=== PATIENT | female | born 1980 | race Caucasian/White ===

== ENCOUNTER 2016-12-19 16:42 | Emergency (ER) | payer OTHER ==
[2016-12-19] MEDS ORDERED: Sodium Chloride 0.9% 1,000 ML IV ONE (17:23)
--- NOTE | 2016-12-19 17:31 | C.PDOC ---
History Of Present Illness Patient is a 36 year old female, who reports she is 18 weeks based on an US performed at 6 weeks , presents with complains of suprapubic pain and occasional dysuria beginning today. She reports that the pain feels like a stretching b/l. Patient states all her care has been in [facility]. She reports she has never felt the baby move. Patient denies passage of fluid, fever, nausea , vomiting, back pain, chest pain, or shortness of breath. Time Seen by Provider: 12/19/16 17:12 Chief Complaint (Nursing): Abdominal Pain History Per: Patient History/Exam Limitations: no limitations Onset/Duration Of Symptoms: Hrs Current Symptoms Are (Timing): Still Present Location Of Pain/Discomfort: Suprapubic Radiation Of Pain To:: None Quality Of Discomfort: "Pain" Associated Symptoms: Other (dysuria ). denies: Fever, Chills, Nausea, Vomiting Exacerbating Factors: None Alleviating Factors: None Recent travel outside of the [place]: Yes Abnormal Vaginal Bleeding: No Past Medical History Reviewed: Historical Data, Nursing Documentation, Vital Signs Vital Signs: Last Vital Signs Temp 98.0 F 12/19/16 17:11 Pulse 81 12/19/16 17:11 Resp 18 12/19/16 17:11 BP 110/72 12/19/16 17:11 Pulse Ox 99 12/19/16 18:53 Family History: States: Unknown Family Hx - Social History Hx Alcohol Use: No Hx Substance Use: No Review Of Systems Constitutional: Negative for: Fever, Chills Cardiovascular: Negative for: Chest Pain, Palpitations Respiratory: Negative for: Cough, Shortness of Breath Gastrointestinal: Positive for: Abdominal Pain (suprapubic pain ). Negative for : Nausea, Vomiting, Diarrhea Genitourinary: Positive for: Dysuria. Negative for: Hematuria, Vaginal Discharge Physical Exam - Physical Exam Appears: Non-toxic, No Acute Distress Skin: Warm, Dry Head: Atraumatic Eye(s): bilateral: Normal Inspection Oral Mucosa: Moist Neck: Supple Chest: Symmetrical, No Deformity Cardiovascular: Rhythm Regular, No Murmur Respiratory: No Rales, No Rhonchi, No Wheezing, Other (Clear to auscultation bilaterally ) Gastrointestinal/Abdominal: Soft, No Tenderness, No Distention, No Guarding, No Rebound, Other (abdomen is gravid ) Extremity: Normal ROM, No Tenderness Neurological/Psych: Oriented x3 ED Course And Treatment - Laboratory Results Result Diagrams: 12/19/16 17:38 12/19/16 17:38 O2 Sat by Pulse Oximetry: 99 (RA) Medical Decision Making Medical Decision Making: Transvaginal US and labs were ordered. Patient was given Tylenol and IV fluids. 6:49PM U/s shows IUP at 16 weeks, 4 days with FHR:142. Breech presentation. Posterior placenta. Given 1L IVF with improvement of symptoms. UA negative for infection. Due to rare bacteria and , will [facility] antibiotics Disposition - Disposition Referrals: [facility]. [facility] [Outside] Disposition: HOME/ ROUTINE Disposition Time: 18:50 Condition: GOOD Additional Instructions: Follow-up with [employer] [facility] within 2 days. Return to ED if condition worsens. Keep hydrated. Take full course of antibiotics. Prescriptions: Nitrofurantoin Macrocrystals [Macrobid] 100 mg PO BID #14 cap Instructions: Abdominal Pain in (ED), Urinary Tract Infection in (ED) Forms: [employer] ([place]) - Clinical Impression Clinical Impression: Abdominal pain affecting , UTI in - Scribe Statement The provider has reviewed the documentation as recorded by the Scribe Stephy Tavarez All medical record entries made by the Scribe were at my direction and personally dictated by me. I have reviewed the chart and agree that the record accurately reflects my personal performance of the history, physical exam, medical decision making, and the department course for this patient. I have also personally directed, reviewed, and agree with the discharge instructions and disposition.
[2016-12-19 17:46] LABS: RBC URINE 1 /hpf (0-3); TRANSITIONAL EPITHIAL < 1 /hpf (0-3); URINE BACTERIA RARE (<OCC); URINE BILIRUBIN NEGATIVE (NEGATIVE); URINE BLOOD NEGATIVE (NEGATIVE); URINE COLOR Straw (YELLOW); URINE GLUCOSE (UA) NORMAL (Normal); URINE KETONE NEGATIVE (NEGATIVE); URINE LEUKOCYTE ESTERASE NEGATIVE Leu/uL (Negative); URINE PROTEIN NEGATIVE (NEGATIVE); URINE UROBILINOGEN NORMAL mg/dL (0.2-1.0); WBC URINE 3 /hpf (0-5)
[2016-12-19 17:46] LABS: BASO % 0.3 % (0.0-2.0); EOS # 0.1 K/uL (0.0-0.7); EOS % 0.8 % (0.0-4.0); HEMATOCRIT 35.3 % (34.0-47.0); LYMPH # 3.1 K/uL (1.0-4.3); LYMPH % 29.5 % (20.0-40.0); MEAN CELL VOLUME 76.4 fL (81.0-99.0); MEAN CORPUSCULAR HEMOGLOBIN 25.2 pg (27.0-31.0); MEAN PLATELET VOLUME 7.1 fL (7.2-11.7); MONO # 0.9 K/uL (0.0-0.8); MONO % 8.3 % (0.0-10.0); RED CELL DISTRIBUTION WIDTH 13.5 % (11.5-14.5); WHITE BLOOD COUNT 10.6 K/uL (4.8-10.8)
[2016-12-19 17:53] LABS: CHLORIDE 98 mmol/L (98-107); POTASSIUM 3.5 mmol/L (3.6-5.2); SODIUM 129 mmol/L (132-148)
[2016-12-19 17:56] LABS: ALB/GLOB RATIO 1.2 (1.0-2.1); ALKALINE PHOSPHATASE 56 U/L (38-126); ALT/SGPT 32 U/L (9-52); AST/SGOT 22 U/L (14-36); BILIRUBIN,TOTAL 0.4 mg/dL (0.2-1.3); BLOOD UREA NITROGEN 12 mg/dL (7-17); CARBON DIOXIDE 20 mmol/L (22-30); GFR AFRICAN-AMERICAN > 60; GLUCOSE,RANDOM 76 mg/dL (65-105); TOTAL PROTEIN 7.7 g/dL (6.3-8.3)
[2016-12-19 17:57] LABS: CALCIUM 9.1 mg/dl (8.6-10.4)
[2016-12-19 19:10] VITALS: BP 121/70; PULSE 77; RESP 19; TEMP 97.8; O2SAT 98
--- NOTE | 2016-12-19 19:38 | US ---
EXAM: US After First Trimester, Transabdominal EXAM DATE/TIME: 12/19/2016 5:20 PM CLINICAL HISTORY: 36 years old, female; Pain; complicated by abdominal or pelvic pain; Generalized abdominal pain; Second trimester; LMP 08/30/16: ; Additional info: , abdominal pain TECHNIQUE: Real-time transabdominal obstetrical ultrasound of the maternal pelvis and a second or third trimester with image documentation. COMPARISON: There are no prior studies for comparison. FINDINGS: Fetus: There is a single living intrauterine gestation in breech presentation. There is a heart rate of 142 beats per minute Placenta: Placenta is posterior. There is no previa. Amniotic fluid: Amnionic fluid volume appears normal. Anatomy: Early gestational age limits evaluation of anatomy. Fluid is seen in the stomach. Cord insertion is normal in appearance. BIOMETRICS Gestational age by US: 16 weeks 4 days EFW: 162 g BPD: 3.44 cm, 16 weeks 4 days HC: 12.68 cm, 16 weeks 3 days AC: 10.64 cm, 16 weeks 4 days FL: 2.24 cm, 16 weeks 5 days MATERNAL: Uterus: Uterus measures approximately 17.3 x 8.6 x 15 cm. Cervix: Cervix measures approximately 4.9 cm Free fluid: There is no free fluid. IMPRESSION: 16 week 4 day single breech fetus, estimated date of delivery 06/01/17
== END 2016-12-19 19:11 | disposition home or self-care (01) ==
LOC: C.ER 16:42
DX: O23.42 Unspecified infection of urinary tract in pregnancy, second trimester (principal); R10.30 Lower abdominal pain, unspecified; Z3A.16 16 weeks gestation of pregnancy
CPT/HCPCS: 76815; 80053; 81001; 84702; 85025; 86850; 86900; 96360; 99285; J7040

== ENCOUNTER 2017-03-15 17:16 | Emergency (ER) | payer OTHER ==
[2017-03-15 17:42] VITALS: BMI 25.0
[2017-03-15 18:07] LABS: SQUAMOUS EPITHIAL 33 /hpf (0-5); URINE BACTERIA FEW (<OCC); URINE BILIRUBIN NEGATIVE (NEGATIVE); URINE BLOOD NEGATIVE (NEGATIVE); URINE CLARITY Hazy (Clear); URINE COLOR Yellow (YELLOW); URINE GLUCOSE (UA) 2+ mg/dL (Normal); URINE LEUKOCYTE ESTERASE 3+ Leu/uL (Negative); URINE NITRATE NEGATIVE (NEGATIVE); URINE PROTEIN 1+ mg/dL (NEGATIVE)
--- NOTE | 2017-03-15 18:08 | OBHP ---
Datetime: 03/15/2017 18:00 IP Adm Impression: , intrauterine Admit Comment, IP Provider: at 28+ came with c/o vaginal discharge coming from 2 days, yellowis h, no ctxs, vb, +fm. obhx primi pmh den med pnv all nkda psh de soch den sse neg nitra,neg pooling ve closed yellowish whitish disc a/p at 28+weeks vaginitis metrogel ptl given po hyra no sex f/u in clinic in 2days Pelvic Type - PN: Adequate Extremities - PN: Normal Abdomen - PN: Normal Back - PN: Normal Breast - PN: Not Done Lungs - PN: Normal Heart - PN: Normal Thyroid - PN: Not Done Neurologic - PN: Normal HEENT - PN: Normal General - PN: Normal FHR - Baseline A Provider: 140 Membranes, Provider: Intact Contraction Comments Provider: none Comments, ACOG Physical Exam: gravid,non tender ext no edema,no calf ten sse neg nitra,neg pooling yellowish whitish disc Pool Provider: Negative Nitrazine Provider: Negative IP Hx Assessment: The History has been Reviewed and is Current EGA AdmitDate IP: 28.2 Vital Signs Provider: Reviewed; Within Normal Limits IP Chief Complaint: Suspected ruptured membranes NICHD Variability Prov Fetus A: Moderate 6-25bpm NICHD Accel Fetus A IP Provider: [id number] FHR Category Provider Fetus A: Category I NICHD Decel Fetus A IP Provider: None Dilatation, Provider: 0 Effacement, Provider: 0 Station, Provider: -3 Genitourinary Exam: Normal DTRs - PN: Normal
--- NOTE | 2017-03-15 18:17 | OBDCSUM ---
Datetime: 03/15/2017 18:12 Discharged to, Provider: Home Follow up at, Provider: 2days Follow up in weeks, Provider: clinic Discharge Comment, Provider: metrogel ptl given po hyra no sex f/u in clinic in 2days Discharge Diagnosis Prov Other: 28weeks vaginitis nst
[2017-03-15 22:35] VITALS: BP 126/73; PULSE 103; RESP 20; TEMP 98.4
== END 2017-03-15 18:35 | disposition home health service (06) ==
LOC: C.EROB 17:16
DX: O26.93 Pregnancy related conditions, unspecified, third trimester (principal); Z3A.28 28 weeks gestation of pregnancy